=== PATIENT | female | born 1990 | race Caucasian/White ===

== ENCOUNTER 2017-09-07 08:54 | Emergency (ER) | payer OTHER ==
[~2017-09-07] VITALS: Ht 160 cm; Wt 53.6 kg
[~2017-09-07 08:54] MED LIST: PREN-385 PO
[2017-09-07 09:10] VITALS: BP 103/52
[2017-09-07 10:01] LABS: BASOPHILS % (AUTO) 0.2 % (0.0-2.0); EOSINOPHILS # (AUTO) 0.1 K/uL (0-0.4); EOSINOPHILS % (AUTO) 0.5 % (0.0-4.0); HEMOGLOBIN 10.6 g/dL (12.0-16.0); LYMPHOCYTES # (AUTO) 1.1 K/uL (2.5-16.5); LYMPHOCYTES % (AUTO) 8.5 % (20.5-51.1); MEAN CORPUSCULAR HEMOGLOBIN 29 pg (27-31); MEAN CORPUSCULAR HGB CONC 33 g/dL (33-37); MEAN CORPUSCULAR VOLUME 87.1 fL (80-94); MONOCYTES # (AUTO) 0.6 K/uL (0.8-1.0); MONOCYTES % (AUTO) 4.9 % (1.7-9.3); NEUTROPHILS # (AUTO) 10.7 K/uL (1.8-7.7); NEUTROPHILS % (AUTO) 85.9 % (42.2-75.2); PLATELET COUNT (AUTO) 304 K/uL (140-450); RED BLOOD CELL COUNT(AUTO) 3.68 MIL/uL (4.20-5.40); RED CELL DISTRIBUTION WIDTH 14.8 % (11.6-13.7); WHITE BLOOD COUNT (AUTO) 12.5 K/uL (4.8-10.8)
[2017-09-07 10:06] LABS: APPEARANCE,URINE SL CLOUDY (CLEAR); BILIRUBIN,URINE NEGATIVE (NEGATIVE); BLOOD, URINE TRACE-I (NEGATIVE); COLOR,URINE YELLOW (YELLOW); LEUKOCYTE ESTERASE ,URINE 2+ (NEGATIVE); NITRITE, URINE NEGATIVE (NEGATIVE); UGLUCOSE NEGATIVE (NEGATIVE)
[2017-09-07 10:15] LABS: ALBUMIN 2.8 g/dL (3.4-5.0); CARBON DIOXIDE 26.4 mmol/L (21-32); CREATININE 0.5 mg/dL (0.6-1.3); POTASSIUM 3.4 mmol/L (3.5-5.1); TOTAL BILIRUBIN 0.1 mg/dL (0.0-1.0)
[2017-09-07 10:42] LABS: RBC,URINE 0-5 (RARE) /HPF (0-5); WBC,URINE 20-60 /HPF (0-5)
[2017-09-07 13:16] VITALS: BP 128/65
== END 2017-09-07 13:17 | disposition home or self-care (01) ==
LOC: MED 08:54
DX: O23.42 Unspecified infection of urinary tract in pregnancy, second trimester (principal); Z3A.18 18 weeks gestation of pregnancy; J45.909 Unspecified asthma, uncomplicated; Z88.1 Allergy status to other antibiotic agents
CPT/HCPCS: 36415; 76805; 80053; 81001; 81025; 82150; 83690; 84702; 85025; 87086; 99285; Q0092

== ENCOUNTER 2018-03-22 08:04 | Emergency (ER) | payer OTHER ==
[~2018-03-22] VITALS: Ht 160 cm; Wt 52.6 kg
[2018-03-22 08:09] VITALS: BP 101/63
[2018-03-22 09:14] LABS: BASOPHILS % (AUTO) 0.4 % (0.0-2.0); EOSINOPHILS # (AUTO) 0.1 K/uL (0-0.4); EOSINOPHILS % (AUTO) 0.6 % (0.0-4.0); HEMATOCRIT 32.2 % (36-48); HEMOGLOBIN 10.2 g/dL (12.0-16.0); LYMPHOCYTES # (AUTO) 1.6 K/uL (2.5-16.5); MEAN CORPUSCULAR HEMOGLOBIN 25 pg (27-31); MEAN CORPUSCULAR HGB CONC 32 g/dL (33-37); MEAN CORPUSCULAR VOLUME 79.2 fL (80-94); MONOCYTES # (AUTO) 0.8 K/uL (0.8-1.0); MONOCYTES % (AUTO) 8.9 % (1.7-9.3); NEUTROPHILS # (AUTO) 6.4 K/uL (1.8-7.7); NEUTROPHILS % (AUTO) 72.1 % (42.2-75.2); PLATELET COUNT (AUTO) 444 K/uL (140-450); RED BLOOD CELL COUNT(AUTO) 4.06 MIL/uL (4.20-5.40); RED CELL DISTRIBUTION WIDTH 17.7 % (11.6-13.7); WHITE BLOOD COUNT (AUTO) 8.9 K/uL (4.8-10.8)
[2018-03-22 09:27] LABS: ANION GAP 11.6 (8-16); CARBON DIOXIDE 27.7 mmol/L (21-32); CREATININE 0.8 mg/dL (0.6-1.3); POTASSIUM 3.3 mmol/L (3.5-5.1)
[2018-03-22 09:33] LABS: ALBUMIN 2.8 g/dL (3.4-5.0); TOTAL BILIRUBIN 0.3 mg/dL (0.0-1.0)
[2018-03-22 11:26] VITALS: BP 101/63
== END 2018-03-22 11:27 | disposition home or self-care (01) ==
LOC: MED 08:04
DX: M25.511 Pain in right shoulder (principal); R07.89 Other chest pain; D64.9 Anemia, unspecified; J45.909 Unspecified asthma, uncomplicated; Z88.1 Allergy status to other antibiotic agents
CPT/HCPCS: 76705; 80053; 81002; 81025; 83690; 85025; 99285; Q0092

== ENCOUNTER 2018-07-02 18:16 | Emergency (ER) | payer OTHER ==
[~2018-07-02] VITALS: Ht 160 cm; Wt 50.8 kg
--- NOTE | 2018-07-02 19:16 | NUR ---
PT AMBULATORY TO ER LOBBY W/ STEADY GAIT IN STABLE CONDITION.
[2018-07-02 20:47] VITALS: BP 114/57
--- NOTE | 2018-07-02 22:24 | NUR ---
PT AMBULATED TO BED 02.
--- NOTE | 2018-07-02 22:35 | NUR ---
27/ F BIB FAMILY, C/O OF THROAT PAIN, COUGH, AND N/V. PATIENT THROAT IS RED AND INFLAMMED, DENIES SOB, OR CP. BREATHING IS EVEN AND UNLABORED, CLEAR LUNG SOUNDS. DENIES CONGESTION, RHINORRHEA. PATIENT DENIES ABDOMINAL DISCOMFORT OR DIARRHEA. AOX4, CLEAR SPEECH, STEADY GAIT.
[2018-07-02 22:50] VITALS: BP 104/44
--- NOTE | 2018-07-02 22:50 | NUR ---
Patient discharged with v/s stable. Written and verbal after care instructions given and explained. Patient alert, oriented and verbalized understanding of instructions. Ambulatory with steady gait. All questions addressed prior to discharge. ID band removed. Patient advised to follow up with PMD. Rx of AMOXICILLIN AND IBUPROFEN given. Patient educated on indication of medication including possible reaction and side effects. Opportunity to ask questions provided and answered.
== END 2018-07-02 22:50 | disposition home or self-care (01) ==
LOC: MED 18:16
DX: J02.0 Streptococcal pharyngitis (principal); J45.909 Unspecified asthma, uncomplicated; Z88.1 Allergy status to other antibiotic agents; Z79.899 Other long term (current) drug therapy
CPT/HCPCS: 99283

== ENCOUNTER 2019-04-03 15:13 | Emergency (ER) | payer MEDICAID, OTHER ==
[~2019-04-03] VITALS: Ht 162.6 cm; Wt 54.4 kg
[2019-04-03 15:24] VITALS: BP 104/64
--- NOTE | 2019-04-03 15:38 | NUR ---
PATIENT PRESENTS TO ED WITH CRAMPY ABDOMINAL PAIN SINCE YESTERDAY. +NAUSEA -VOMITING +DIARRHEA X 4 EPISODES TODAY. PT DENIES FEVER, COUGH, COLDS. HER SON AND DAUGHTER WITH SAME SYMPTOMS. ABDOMEN IS FLAT, WITH HYPERACTIVE BS ON ALL QUADRANTS. PATIENT STATES PAIN OF 5/10 AT THIS TIME; VSS; PATIENT POSITIONED FOR COMFORT; HOB ELEVATED; BEDRAILS UP X2; BED DOWN. ER MD MADE AWARE OF PT STATUS. PMH: HYPOTENSION, ANEMIA MEDS: IRON ALLERGIES: AZITHROMYCIN
--- NOTE | 2019-04-03 15:55 | NUR ---
Dr. Choudhury is evaluating the patient at bedside.
[2019-04-03] MEDS ORDERED: ONDANSETRON 4 MG ODT PO ONE (16:05)
[2019-04-03 16:33] VITALS: BP 117/60
--- NOTE | 2019-04-03 16:33 | NUR ---
Patient discharged with v/s stable. Written and verbal after care instructions given and explained. Patient alert, oriented and verbalized understanding of instructions. Ambulatory with steady gait. All questions addressed prior to discharge. ID band removed. Patient advised to follow up with PMD. Rx of ZOFRAN AND LOMOTIL given. Patient educated on indication of medication including possible reaction and side effects. Opportunity to ask questions provided and answered.
== END 2019-04-03 16:33 | disposition home or self-care (01) ==
LOC: MED 15:13
DX: R19.7 Diarrhea, unspecified (principal); R11.0 Nausea; J45.909 Unspecified asthma, uncomplicated; D64.9 Anemia, unspecified; Z79.899 Other long term (current) drug therapy; Z88.1 Allergy status to other antibiotic agents
CPT/HCPCS: 81002; 81025; 99283; Q0162

== ENCOUNTER 2019-05-14 16:46 | Emergency (ER) | payer OTHER ==
[~2019-05-14] VITALS: Ht 160 cm; Wt 54.1 kg
[2019-05-14 17:01] VITALS: BP 122/57
[2019-05-14] MEDS ORDERED: ACETAMINOPHEN 325 MG TAB PO ONE (17:10)
--- NOTE | 2019-05-14 17:45 | NUR ---
INFLUENZA A POSITIVE, INFLUENZA B NEGATIVE. DR. YOUNG MADE AWARE.
--- NOTE | 2019-05-14 18:00 | NUR ---
EVALUATING PT IN TRIAGE
--- NOTE | 2019-05-14 18:03 | NUR ---
C/O F/C, FATIGUE, HACKING PRODUCTIVE COUGH, CHEST CONGESTION X 2 DAYS] PT'S CHILDREN RECENTLY DX INFLUENZA A WELL.
[2019-05-14 18:08] VITALS: BP 122/57
--- NOTE | 2019-05-14 18:08 | NUR ---
Patient discharged with v/s stable. Written and verbal after care instructions given and explained. Patient alert, oriented and verbalized understanding of instructions. Ambulatory with steady gait. All questions addressed prior to discharge. ID band removed. Patient advised to follow up with PMD. Rx of Zofran ODT and Tamiflu 75mg given. Patient educated on indication of medication including possible reaction and side effects. Opportunity to ask questions provided and answered.
== END 2019-05-14 18:08 | disposition home or self-care (01) ==
LOC: MED 16:46
DX: J10.1 Influenza due to other identified influenza virus with other respiratory manifestations (principal); Z88.1 Allergy status to other antibiotic agents; Z79.899 Other long term (current) drug therapy
CPT/HCPCS: 87804; 99283

== ENCOUNTER 2019-07-04 17:49 | Emergency (ER) | payer OTHER ==
[~2019-07-04] VITALS: Ht 162.6 cm; Wt 58.1 kg
[2019-07-04 18:16] VITALS: BP 115/54
--- NOTE | 2019-07-04 18:48 | NUR ---
KELLY VERMA AT CHAIR
--- NOTE | 2019-07-04 18:52 | NUR ---
C/O COUGH, SORE THROAT X 1 WEEK. AFEBRILE. PT ALERT AND AWAKE. AMBULATORY WITH STEADY GAIT. LUNGS CLEAR BILTERALLY. RR EVEN AND UNLABORED. VS STABLE. MOTHER BROUGHT IN 3 CHILDREN WITH SIMILAR S/S.
--- NOTE | 2019-07-04 19:22 | NUR ---
PT MOVED TO [facility]B.
[2019-07-04 19:44] VITALS: BP 120/61
--- NOTE | 2019-07-04 19:44 | NUR ---
Patient discharged with v/s stable. Written and verbal after care instructions given and explained REGARDING UPPER RESP INFECTION. Patient alert, oriented and verbalized understanding of instructions. Ambulatory with steady gait. All questions addressed prior to discharge. ID band removed. Patient advised to follow up with PMD. Rx of CEPACOL COOLING SENSATIONS, PROMETHAZINE, IBUPROFEN given. Patient educated on indication of medication including possible reaction and side effects. Opportunity to ask questions provided and answered.
== END 2019-07-04 19:44 | disposition home or self-care (01) ==
LOC: MED 17:49
DX: B34.9 Viral infection, unspecified (principal); Z79.899 Other long term (current) drug therapy; Z88.1 Allergy status to other antibiotic agents
CPT/HCPCS: 99283

== ENCOUNTER 2020-06-05 15:08 | Emergency (ER) | payer OTHER ==
[~2020-06-05] VITALS: Ht 160 cm; Wt 52.6 kg
[2020-06-05 16:26] VITALS: BP 112/58
--- NOTE | 2020-06-05 17:00 | NUR ---
29 YO F BIB SELF FOR C/C OF N/V X1 DAY. DENIES COVID SYMPTOMS, WAS TESTED FOR COVID FIVE DAYS AGO AND OBTAINED NEGATIVE RESULTS.
[2020-06-05 17:02] LABS: BASOPHILS # (AUTO) 0.1 K/uL (0.00-0.22); BASOPHILS % (AUTO) 0.4 % (0.0-2.0); EOSINOPHILS # (AUTO) 0.1 K/uL (0-0.4); EOSINOPHILS % (AUTO) 0.5 % (0.0-4.0); HEMATOCRIT 39.9 % (36-48); HEMOGLOBIN 12.8 g/dL (12.0-16.0); LYMPHOCYTES # (AUTO) 2.3 K/uL (2.5-16.5); MEAN CORPUSCULAR HEMOGLOBIN 28 pg (27-31); MEAN CORPUSCULAR HGB CONC 32 g/dL (33-37); MEAN CORPUSCULAR VOLUME 86.1 fL (80-94); MONOCYTES # (AUTO) 0.6 K/uL (0.8-1.0); NEUTROPHILS % (AUTO) 75.1 % (42.2-75.2); PLATELET COUNT (AUTO) 371 K/uL (140-450); RED BLOOD CELL COUNT(AUTO) 4.63 MIL/uL (4.20-5.40); RED CELL DISTRIBUTION WIDTH 18.7 % (11.6-13.7); WHITE BLOOD COUNT (AUTO) 11.9 K/uL (4.8-10.8)
[2020-06-05 17:17] LABS: ANION GAP 10.2 (8-16); CARBON DIOXIDE 29.1 mmol/L (21-32); CREATININE 0.8 mg/dL (0.6-1.3); POTASSIUM 4.3 mmol/L (3.5-5.1); TOTAL BILIRUBIN 0.4 mg/dL (0.0-1.0)
[2020-06-05 17:34] VITALS: BP 112/58
== END 2020-06-05 17:34 | disposition home or self-care (01) ==
LOC: MED 15:08
DX: K29.70 Gastritis, unspecified, without bleeding (principal); J45.909 Unspecified asthma, uncomplicated; Z88.1 Allergy status to other antibiotic agents; Z79.899 Other long term (current) drug therapy
CPT/HCPCS: 36415; 80053; 81002; 81025; 83690; 85025; 99283

== ENCOUNTER 2020-06-22 12:20 | Emergency (ER) | payer OTHER ==
[~2020-06-22] VITALS: Ht 160 cm; Wt 47.2 kg
[2020-06-22 12:27] VITALS: BP 107/50
[2020-06-22] MEDS ORDERED: KETOROLAC 30 MG/ML VIAL IM ONE (13:55)
[2020-06-22] MEDS ORDERED: CYCLOBENZAPRINE 10 MG TAB PO ONE (13:55)
[2020-06-22 14:48] VITALS: BP 106/66
== END 2020-06-22 14:48 | disposition home or self-care (01) ==
LOC: MED 12:20
DX: M43.6 Torticollis (principal); J45.909 Unspecified asthma, uncomplicated; Z88.1 Allergy status to other antibiotic agents; Z79.899 Other long term (current) drug therapy
CPT/HCPCS: 81025; 96372; 99283; J1885

== ENCOUNTER 2020-08-11 14:25 | Emergency (ER) | payer OTHER ==
[~2020-08-11] VITALS: Ht 160 cm; Wt 49.0 kg
[2020-08-11 14:35] VITALS: BP 116/68
--- NOTE | 2020-08-11 14:48 | NUR ---
PT TAKEN TO BED 7.
--- NOTE | 2020-08-11 14:49 | NUR ---
KELLY HOLLOWAY AT BEDSIDE
--- NOTE | 2020-08-11 14:49 | NUR ---
Krysta stafford in [facility] - 08/11/20 at 1449 by [email or web address] PT AMB TO BED 7
[2020-08-11] MEDS ORDERED: KETOROLAC 30 MG/ML VIAL IM ONE (14:50)
[2020-08-11] MEDS ORDERED: ONDANSETRON 4 MG ODT PO ONE (14:50)
--- NOTE | 2020-08-11 14:50 | NUR ---
29 Y/O FEMALE C/O MID ABDOMINAL PAIN & MID BACK PAIN, NAUSEA X 3 DAYS AND C/O HEADACHE X YESTERDAY. DENIES DYSURIA. PT RATES PAIN 9/10 THAT SHE DESCRIBES NEEDLES AND NONRADIATING. PT TOOK ALEVE WITH MINIMAL RELIEF. ABD IS FLAT SOFT AND TENDER ON PALPATION WITH ACTIVE BOWEL SOUNDS X4 QUADS. PT IS NAUSEOUS/DIARRHEA WITH NO EMESIS. PT IS A/O X4 WITH EVEN AND UNLABORED RESPIRATIONS. PMH: ASTHMA
[2020-08-11 14:56] LABS: BASOPHILS % (AUTO) 0.1 % (0.0-2.0); EOSINOPHILS % (AUTO) 0.3 % (0.0-4.0); HEMATOCRIT 35.2 % (36-48); HEMOGLOBIN 11.3 g/dL (12.0-16.0); LYMPHOCYTES # (AUTO) 0.8 K/uL (2.5-16.5); LYMPHOCYTES % (AUTO) 9.6 % (20.5-51.1); MEAN CORPUSCULAR HEMOGLOBIN 29 pg (27-31); MEAN CORPUSCULAR HGB CONC 32 g/dL (33-37); MONOCYTES # (AUTO) 0.4 K/uL (0.8-1.0); MONOCYTES % (AUTO) 5.4 % (1.7-9.3); NEUTROPHILS % (AUTO) 84.6 % (42.2-75.2); PLATELET COUNT (AUTO) 367 K/uL (140-450); RED BLOOD CELL COUNT(AUTO) 3.96 MIL/uL (4.20-5.40); RED CELL DISTRIBUTION WIDTH 15.1 % (11.6-13.7); WHITE BLOOD COUNT (AUTO) 8.3 K/uL (4.8-10.8)
[2020-08-11 15:09] LABS: ALBUMIN 3.5 g/dL (3.4-5.0); ANION GAP 10.4 (8-16); CARBON DIOXIDE 27.9 mmol/L (21-32); CREATININE 0.9 mg/dL (0.6-1.3); POTASSIUM 3.3 mmol/L (3.5-5.1); TOTAL BILIRUBIN 0.5 mg/dL (0.0-1.0)
[2020-08-11 15:17] LABS: APPEARANCE,URINE CLOUDY (CLEAR); BILIRUBIN,URINE NEGATIVE (NEGATIVE); BLOOD, URINE 2+ (NEGATIVE); COLOR,URINE YELLOW (YELLOW); LEUKOCYTE ESTERASE ,URINE 2+ (NEGATIVE); NITRITE, URINE POSITIVE (NEGATIVE); UGLUCOSE NEGATIVE (NEGATIVE)
[2020-08-11 15:29] LABS: WBC,URINE 80-100 /HPF (0-5)
[2020-08-11] MEDS ORDERED: cefTRIAXone 1,000 MG in LIDOCAINE MPF 1% 2.1 ML IM ONE (15:30)
[2020-08-11] MEDS ORDERED: IBUP-1842 PO (15:32)
[2020-08-11] MEDS ORDERED: CEPH500C16 PO (15:32)
[2020-08-11] MEDS ORDERED: cefTRIAXone 1,000 MG VIAL ONE (15:52)
[2020-08-11] MEDS ORDERED: LIDOCAINE MPF 1% 5 ML ONE (15:52)
[2020-08-11 16:12] VITALS: BP 116/68
--- NOTE | 2020-08-11 16:13 | NUR ---
Patient discharged with v/s stable. Written and verbal after care instructions given and explained. Patient alert, oriented and verbalized understanding of instructions. Ambulatory with steady gait. All questions addressed prior to discharge. ID band removed. Patient advised to follow up with PMD. Rx of cephalexin and ibuprofen given. Patient educated on indication of medication including possible reaction and side effects. Opportunity to ask questions provided and answered.
== END 2020-08-11 16:13 | disposition home or self-care (01) ==
LOC: MED 14:25
DX: N12 Tubulo-interstitial nephritis, not specified as acute or chronic (principal); J45.909 Unspecified asthma, uncomplicated; Z88.1 Allergy status to other antibiotic agents; Z79.899 Other long term (current) drug therapy
CPT/HCPCS: 36415; 80053; 81001; 81025; 83690; 85025; 87086; 96372; 99284; J0696; J1885; J2001; Q0162

== ENCOUNTER 2020-08-11 20:03 | Emergency (ER) | payer OTHER ==
[~2020-08-11] VITALS: Ht 160 cm; Wt 49.0 kg
[~2020-08-11 20:03] MED LIST changes: +CEPH500C16 PO; +IBUP-1842 PO
[2020-08-11 20:13] VITALS: BP 116/58
--- NOTE | 2020-08-11 20:13 | NUR ---
TO LOBBY A/W BED AMBULATORY , MEDICATED PER PROTOCOL, MOTRIN WAS GIVEN PER PO.TOLERATED WELL.
[2020-08-11] MEDS ORDERED: IBUPROFEN 400 MG TAB PO ONE (20:20)
--- NOTE | 2020-08-11 21:32 | NUR ---
PATIENT LEFT WITHOUT BEING SEEN BY DR. FENTON. NO FURTHER CARE PROVIDED FOR PATIENT.
== END 2020-08-11 21:32 | disposition left against medical advice (07) ==
LOC: MED 20:03
DX: M54.5 Low back pain (principal); Z53.21 Procedure and treatment not carried out due to patient leaving prior to being seen by health care provider

== ENCOUNTER 2021-01-18 16:34 | Emergency (ER) | payer OTHER ==
[~2021-01-18] VITALS: Ht 160 cm; Wt 53.1 kg
[2021-01-18 16:40] VITALS: BP 97/63
[2021-01-18] MEDS ORDERED: NAPR-54 PO (18:07)
[2021-01-18 18:44] VITALS: BP 97/63
--- NOTE | 2021-01-18 18:45 | NUR ---
Patient discharged with v/s stable. Written and verbal after care instructions given and explained. Patient alert, oriented and verbalized understanding of instructions. Ambulatory with crutches. All questions addressed prior to discharge. ID band removed. Patient advised to follow up with PMD. Rx of NAPROXEN given. Patient educated on indication of medication including possible reaction and side effects. Opportunity to ask questions provided and answered.
== END 2021-01-18 18:45 | disposition home or self-care (01) ==
LOC: MED 16:34
DX: S93.401A Sprain of unspecified ligament of right ankle, initial encounter (principal); J45.909 Unspecified asthma, uncomplicated; Z79.1 Long term (current) use of non-steroidal anti-inflammatories (NSAID); Z79.2 Long term (current) use of antibiotics; Z88.1 Allergy status to other antibiotic agents; X58.XXXA Exposure to other specified factors, initial encounter; Y93.02 Activity, running; Y92.89 Other specified places as the place of occurrence of the external cause; Y99.8 Other external cause status
CPT/HCPCS: 73610; 99283

== ENCOUNTER 2021-01-20 15:35 | Emergency (ER) | payer OTHER ==
[~2021-01-20] VITALS: Ht 160 cm; Wt 53.1 kg
[~2021-01-20 15:35] MED LIST changes: +NAPR-54 PO
[2021-01-20 15:42] VITALS: BP 113/70
--- NOTE | 2021-01-20 15:50 | NUR ---
30 YEAR OLD FEMALE COMPLAINS OF CHEST PAIN, COUGH X 2 DAYS. PT STATES SHE HAS CHEST PAIN BEFORE COUGH THAT RADIATES TO RIGHT ARM. PT STATES NAUSEA, WITH SOME SOB. PMH - ASTHMA
--- NOTE | 2021-01-20 17:00 | NUR ---
Patient discharged with v/s stable. Written and verbal after care instructions given and explained. Patient verbalized understanding. Ambulatory with steady gait. All questions addressed prior to discharge. Advised to follow up with PMD.
== END 2021-01-20 17:00 | disposition home or self-care (01) ==
LOC: MED 15:35
DX: J06.9 Acute upper respiratory infection, unspecified (principal); Z20.822 Contact with and (suspected) exposure to COVID-19; Z01.84 Encounter for antibody response examination
CPT/HCPCS: 99283; U0003

== ENCOUNTER 2021-04-05 14:09 | Emergency (ER) | payer OTHER ==
[~2021-04-05] VITALS: Ht 162.6 cm; Wt 53.1 kg
[2021-04-05 15:11] VITALS: BP 92/59
--- NOTE | 2021-04-05 15:14 | NUR ---
TENT 2
[2021-04-05] MEDS ORDERED: NAPR-54 PO (16:05)
[2021-04-05] MEDS ORDERED: PRED20TA5 PO (16:05)
[2021-04-05] MEDS ORDERED: PENI500T20 PO (16:05)
--- NOTE | 2021-04-05 16:41 | NUR ---
NO NURSING CARE GIVEN-Patient discharged with v/s stable. Written and verbal after care instructions given and explained. Patient alert, oriented and verbalized understanding of instructions. Ambulatory with steady gait. All questions addressed prior to discharge. ID band removed. Patient advised to follow up with PMD. Rx of NAPROSYN,PCN V POTASSIUM,PREDNISONE given. Patient educated on indication of medication including possible reaction and side effects. Opportunity to ask questions provided and answered.
[2021-04-05 16:43] VITALS: BP 92/59
== END 2021-04-05 16:43 | disposition home or self-care (01) ==
LOC: MED 14:09
DX: J02.0 Streptococcal pharyngitis (principal); R59.0 Localized enlarged lymph nodes; J45.909 Unspecified asthma, uncomplicated; Z79.899 Other long term (current) drug therapy; Z79.2 Long term (current) use of antibiotics; Z79.1 Long term (current) use of non-steroidal anti-inflammatories (NSAID); Z88.1 Allergy status to other antibiotic agents
CPT/HCPCS: 99283

== ENCOUNTER 2021-12-30 21:07 | Emergency (ER) | payer OTHER ==
[~2021-12-30 21:07] MED LIST changes: +PENI500T20 PO; +PRED20TA5 PO
--- NOTE | 2021-12-30 21:45 | NUR ---
CALLED TO TRIAGE, NO ANSWER
--- NOTE | 2021-12-30 22:00 | NUR ---
CALLED TO TRIAGE, NO ANSWER
--- NOTE | 2021-12-30 22:05 | NUR ---
CALLED TO TRIAGE, NO ANSWER. PT LWBS
== END 2021-12-30 21:45 | disposition left against medical advice (07) ==
LOC: MED 21:07
DX: R51.9 Headache, unspecified (principal); Z53.21 Procedure and treatment not carried out due to patient leaving prior to being seen by health care provider

== ENCOUNTER 2023-01-26 21:02 | Emergency (ER) | payer OTHER ==
[~2023-01-26] VITALS: Ht 160 cm; Wt 48.5 kg
[~2023-01-26 21:02] MED LIST changes: +FERR240T12 PO; +ONDA-188 PO
[2023-01-26 22:30] VITALS: BP 98/60; PULSE 89; RESP 16; TEMP 101; O2SAT 100
[2023-01-26] MEDS ORDERED: IBUPROFEN 600 MG TAB PO ONE (22:35)
[2023-01-26 22:45] VITALS: BP 98/60; PULSE 89; RESP 16; TEMP 101; O2SAT 100
[2023-01-26 23:00] LABS: APPEARANCE,URINE CLEAR (CLEAR); BILIRUBIN,URINE NEGATIVE (NEGATIVE); BLOOD, URINE NEGATIVE (NEGATIVE); COLOR,URINE YELLOW (YELLOW); LEUKOCYTE ESTERASE ,URINE TRACE (NEGATIVE); NITRITE, URINE NEGATIVE (NEGATIVE); PROTEIN,URINE NEGATIVE (NEGATIVE); UGLUCOSE NEGATIVE (NEGATIVE)
[2023-01-26 23:10] LABS: BACTERIA,URINE FEW /HPF (None Seen); MUCUS,URINE 2+ /LPF (None Seen); RBC,URINE 0-5 /HPF (0-5); SQUAMOUS EPITHELIAL CELL,UR 20-50 /LPF (0-3 (FEW)); TRICHOMONAS,URINE None Seen /HPF (None Seen); YEAST,URINE None Seen /HPF (None Seen)
[2023-01-26 23:11] LABS: FLU A ANTIGEN negative (NEGATIVE); FLU B ANTIGEN negative (NEGATIVE)
[2023-01-26] MEDS ORDERED: NITR100C7 PO (23:58)
[2023-01-27] MEDS ORDERED: MUC600 PO
[2023-01-27] MEDS ORDERED: SUD30 PO
[2023-01-27] MEDS ORDERED: IBUP-2213 PO
[2023-01-27] MEDS ORDERED: BENZ200C4 PO
[2023-01-27] MEDS ORDERED: NITROFURANTOIN 100 MG CAP PO ONE (00:05)
== END 2023-01-27 00:30 | disposition home or self-care (01) ==
LOC: MED 21:02
DX: N39.0 Urinary tract infection, site not specified (principal); J06.9 Acute upper respiratory infection, unspecified; J45.909 Unspecified asthma, uncomplicated; Z88.1 Allergy status to other antibiotic agents; Z79.899 Other long term (current) drug therapy; Z20.822 Contact with and (suspected) exposure to COVID-19
CPT/HCPCS: 81001; 81025; 87081; 87086; 99284

== ENCOUNTER 2023-08-19 17:06 | Emergency (ER) | payer OTHER ==
[~2023-08-19] VITALS: Ht 160 cm; Wt 50.8 kg
[~2023-08-19 17:06] MED LIST changes: +BENZ200C4 PO; +IBUP-2213 PO; +MUC600 PO; +NITR100C7 PO; +SUD30 PO
[2023-08-19 17:16] VITALS: BP 101/57; PULSE 86; RESP 19; TEMP 98.1; O2SAT 100
[2023-08-19] MEDS ORDERED: PRED50TA3 PO (17:34)
[2023-08-19] MEDS ORDERED: IBUP-1842 PO (17:34)
[2023-08-19 18:31] VITALS: BP 93/62; PULSE 89; TEMP 98.2; O2SAT 98
== END 2023-08-19 18:30 | disposition home or self-care (01) ==
LOC: MED 17:06
DX: R05.9 Cough, unspecified (principal); R07.9 Chest pain, unspecified; R22.1 Localized swelling, mass and lump, neck; R42 Dizziness and giddiness; J45.909 Unspecified asthma, uncomplicated; F17.200 Nicotine dependence, unspecified, uncomplicated; Z79.899 Other long term (current) drug therapy; Z88.1 Allergy status to other antibiotic agents
CPT/HCPCS: 99283